=== PATIENT | male | born 1950 | race Caucasian/White ===

== ENCOUNTER → 2017-03-22 | Outpatient (CLI) | payer MEDICARE, BC ==
--- NOTE | ~2017-03-22 | ECHO ---
Transthoracic Echocardiography Report (TTE) Demographics Patient Name YAS HERRON Date of Study 03/22/2017 Patient Number [id number] Visit Number [id number] Date of 1950 Room Number Gender Male Number Age 66 year(s) Referring Sara Paredes Post Partum Nurse Alex Ding RVT Physician Physician Interpreting Sara Paredes Transition Of Care Specialist Physician MD Supervising Ordering Sara Paredes MD/MLP Physician MD Nurse Stress Organic Lab Worker Conclusions Contractility Score Summary Normal Left Ventricular contractility was noted. Summary Technically difficult exam. Normal LV/RV size and systolic function. The estimated left ventricular ejection fraction is 55-60%. Mild to moderate concentric left ventricular hypertrophy. Diastolic function indeterminate due to patient's arrhythmia. Moderate LA enlargement. Moderate calcification of the mitral valve. Procedure Type of Study TTE procedure:2D Echocardiogram. Procedure Date Date: 03/22/2017 Start: 09:39 AM Study Location: Echo Lab Technical Quality: Limited visualization due to poor acoustical window. Indications:Coronary artery disease and Atrial fibrillation. Appropriate Use Criteria: 9 Patient Status: Routine HR: 56 bpm BP: 138/77 mmHg M-Mode/2D Measurements LV Diastolic Dimension: 4.62 cm LV Systolic Dimension: 3.19 cm LV Septum Diastolic: 1.49 cm LV PW Diastolic: 1.73 cm AO Root Dimension: 2.1 cm Cardiac Output: 3.08 l/min AV Cusp Separation: 2.2 cm RV Diastolic Dimension: 3.27 cm LA Dimension: 3.5 cm LVOT: 2.1 cm RV Base: 3.35 cm LVOT VTI: 15.9 cm RV Mid: 3.02 cm LV Stroke volume: 55.04 ml RV Length: 6.13 cm TAPSE: 1.61 cm TDI-S': 10.4 cm/s Doppler Measurements AV Peak Velocity: 1.7 m/s MV Peak E-Wave: 1.09 m/s AV Peak Gradient: 11.56 mmHg AV Mean Gradient: 5 mmHg MV P1/2t: 80 msec LVOT Peak Velocity: 0.8 m/s PV Peak Velocity: 1.1 m/s PV Peak Gradient: 4.84 mmHg E' Septal Velocity: 0.07 m/s E' Lateral Velocity: 0.18 m/s Findings Left Ventricle Mild to moderate concentric left ventricular hypertrophy. Diastolic function indeterminate due to patient's arrhythmia. Right Ventricle Normal right ventricle structure and function. Left Atrium The left atrium is moderately dilated. Right Atrium The right atrium is moderately dilated. IVC not visualized due to poor subcostal window. Mitral Valve Mild mitral annular calcification. Moderate calcification of the mitral valve. Trivial mitral regurgitation by color Doppler. Aortic Valve The aortic valve is mildly sclerotic. Tricuspid Valve Trivial tricuspid regurgitation by color Doppler. Pulmonic Valve Normal pulmonic valve structure and function. Pericardial Effusion No evidence of pericardial effusion. Miscellaneous Visualized portions of the aortic root and ascending aorta appear normal in size. Pleural Effusion No evidence of pleural effusion. Contractility Score LV regional wall motion:(0-Non visualized 1-Normal 2-Hypokinesis 3-Akinesis 4-Dyskinesis 5-Aneurysm) Signature dtt: ELI LARKIN dtd: 03/22/17 0939 Physician Self Edit
== END | disposition disaster alternative care site (69) ==
LOC: GCAR 09:00
DX: I25.10 Atherosclerotic heart disease of native coronary artery without angina pectoris (principal); I48.91 Unspecified atrial fibrillation; I51.7 Cardiomegaly